=== PATIENT | male | born 1960 | race Hispanic/Latino ===

== ENCOUNTER → 2019-05-30 | Day surgery (SDC) | payer OTHER ==
[2019-05-25 17:27] LABS: BASOPHILS # (AUTO) 0.1 (0.0-0.1); BASOPHILS % 0.8 % (0.0-1.0); EOSINOPHILS # (AUTO) 0.3 (0.0-0.4); EOSINOPHILS % 3.2 % (0.0-6.0); HEMATOCRIT 43.5 % (38.2-49.6); LYMPHOCYTES # (AUTO) 4.1 (1.0-3.2); MEAN CORPUSCULAR HEMOGLOBIN 30.5 pg (28-32); MEAN CORPUSCULAR HGB CONC 34.5 g/dL (31-35); MEAN CORPUSCULAR VOLUME 88.4 fL (81-99); MONOCYTES # (AUTO) 0.7 (0.2-0.8); MONOCYTES % 7.7 % (4.4-11.3); NEUTROPHILS # (AUTO) 3.8 (2.1-6.9); NEUTROPHILS % 42.1 % (38.7-80.0); PLATELET COUNT 205 x10e3/uL (140-360); RED BLOOD COUNT 4.92 x10e6/uL (4.3-5.7); RED CELL DISTRIBUTION WIDTH 12.8 % (11.7-14.4)
[~2019-05-30] MED LIST: ASPIR 8181 MG PO; ATORVASTATIN CA20 MG PO; CARVEDILOL12.5 MG PO; EDARBYCLOR 40-1 EAC1 PO; FENOFIBRATE145 MG PO; FENTANYL CITRATE/PF 100MCG/2 ML INJ ONE; HYOSCYAMINE 0.125 MG TAB ONE; MIDAZOLAM HCL 2 MG/2 ML VIAL ONE; OMEPRAZOLE40 MG PO; PROPOFOL IV EMULSION 10 MG/ML 50 ML VIAL ONE; SPIRONOLACTONE25 MG PO
--- OUTSIDE RECORDS SUMMARY | 2019-05-30 11:15 | XMS REPORT | Summary of Care ---
Author Author [facility] Organization [facility] Address Unknown Phone Unavailable Encounter HQ Gaye_tirso(FIN) [id number] Date(s): 04/28/18 - 04/28/18 [facility] [address] [place] [address]- Discharge Disposition: Home or Self Care Attending Physician: Ayo Almazan MD Admitting Physician: Ayo Almazan MD Vital Signs No data available for this section Problem List Condition Effective Dates Status Health Status Informant COPD (chronic Active obstructive pulmonary disease)(Confirmed) Chronic left Active ventricular systolic heart failure(Confirmed) Claudication(Confirm Active ed) CAD (coronary artery Active disease)(Confirmed) BANG (dyspnea on Active exertion)(Confirmed) AV block, 1st Active degree(Confirmed) Hypercholesteremia(C Active onfirmed) HTN Active (hypertension)(Confi rmed) CONRADO (obstructive Active sleep apnea)(Confirmed) PVD (peripheral Active vascular disease)(Confirmed)1 Smoker(Confirmed) Active 1mild Allergies, Adverse Reactions, Alerts Substance Reaction Severity Status NKDA Active Medications No data available for this section Results No data available for this section Immunizations No data available for this section Procedures Procedure Date Related Diagnosis Body Site Status Cardiac catheterisation, left heart 11/24/17 Completed Appendectomy Completed Arthroscopy of knee1 Completed 1bilateral Social History Social History Type Response Alcohol Past Smoking Status Current every day smoker; Type: Cigarettes; Lives with someone who smokes; Cigarette Smoking Last 365 Days Yes; Reg Smoking Cessation Counseling No; Number of years: 50; Total pack years: 2; entered on: 11/17/17 Assessment and Plan No data available for this section
--- OUTSIDE RECORDS SUMMARY | 2019-05-30 11:15 | XMS REPORT | Summary of Care ---
Author Author [facility] Organization [facility] Address Unknown Phone Unavailable Encounter HQ Veronica(FIN) [id number] Date(s): 06/09/18 - 06/09/18 [facility] [address] [place] [address]- Encounter Diagnosis Chronic obstructive pulmonary disease, unspecified (Final) - 06/15/18 Discharge Disposition: Home or Self Care Attending Physician: Ayo Almazan MD Referring Physician: Ayo Almazan MD Vital Signs Most recent to 1 oldest [Reference Range]: Height 167.64 cm (06/09/18 9:01 AM) Weight 86.364 kg (06/09/18 9:01 AM) Body Mass Index 30.73 m2 (06/09/18 9:01 AM) Problem List Condition Effective Dates Status Health [...]
--- OUTSIDE RECORDS SUMMARY | 2019-05-30 11:15 | XMS REPORT | Continuity of Care Document ---
Author Author [facility] Address Unknown Phone Unavailable Care Team Providers Care Hand Salter Name Role Phone Pinchd Unavailable Unavailable Problems Problem Status Onset Date Classification Date Reported Comments Source Chronic obstructive pulmonary disease, unspecified 06/16/2018 12/27/2018 [facility] BREATHING Active 05/25/2018 [facility] J44.9 Active 05/25/2018 [facility] COPD Active 04/28/2018 [facility] Atherosclerotic heart disease of [place] coronary artery without angina pectoris 12/01/2017 03/02/2018 [facility] G47.33 Active 11/11/2017 [facility] ABNORMAL RESULT OF OTHER CARDIOVASCULAR Active 11/10/2017 [facility] R06.02 SHORTNESS OF BREATH Active 09/09/2017 [facility] Obstructive sleep apnea (pediatric) 03/02/2018 [facility] Essential hypertension 03/02/2018 [facility] Nicotine dependence, unspecified, uncomplicated 02/17/2018 [facility] Other forms of dyspnea 02/17/2018 [facility] COPD (Confirmed) Active Problem 12/27/2018 [facility] Chronic left ventricular systolic heart failure Active Problem 12/27/2018 [facility] Claudication Active Problem 12/27/2018 [facility] CAD (Confirmed) Active Problem 12/27/2018 [facility] BANG (Confirmed) Active Problem 12/27/2018 [facility] AV block, 1st degree Active Problem 12/27/2018 [facility] Hypercholesteremia Active Problem 12/27/2018 [facility] HTN (Confirmed) Active Problem 12/27/2018 [facility] CONRADO (Confirmed) Active Problem 12/27/2018 [facility] PVD (Confirmed)1 Active Problem 12/27/2018 mild [facility] Smoker Active Problem 12/27/2018 [facility] Cardiomyopathy, unspecified 03/02/2018 [facility] Nonrheumatic mitral insufficiency 03/02/2018 [facility] Stricture of artery 03/02/2018 [facility] Pure hypercholesterolemia, unspecified 03/02/2018 [facility] Nicotine dependence, cigarettes, uncomplicated 03/02/2018 [facility] Obesity, unspecified 03/02/[address] [facility] Body mass index 33.0-33.9, adult 03/02/[address] [facility] residential use of antithrombotics/antiplatelets 03/02/[address] [facility] residential use of aspirin 03/02/[address] [facility] Other watermelon harvesting supervisor drug therapy 03/02/[address] [facility] SHORTNESS OF BREATH Active [facility] ABNORMAL ELECTROCARDIOGRAM [ECG] [EKG] Active [facility] ESSENTIAL (PRIMARY) HYPERTENSION Active [facility] CHEST PAIN, UNSPECIFIED Active [facility] CHRONIC OBSTRUCTIVE PULMON DISEASE W ACU Active [facility] Medications Medication Details Route Status Patient Instructions Ordering Provider Order Date Source Acetaminophen 325 MG / Hydrocodone Bitartrate 5 MG Oral Tablet 2 tab, Route: PO, Drug Form: TAB, Dosing Weight 87.091, kg, Q4H, PRN Pain Score 7-10, Start date: 11/24/17 11:41:00 SHIRRER, Duration: 30 day, Stop date: 12/24/17 11:40:00 CSTNotes: (Same as: Darby 325/5) Do not exceed 4gm/day of acetaminophen. Inactive 11/24/2017 [facility] Nitroglycerin 0.4 mg, 1 tab, Route: SL, Drug form: TAB, Q5Min, Dosing Weight 87.091, kg, PRN Chest Pain, Start date: 11/24/17 11:41:00 SHIRRER, Duration: 30 day, Stop date: 12/24/17 11:40:00 CSTNotes: (Same as:Nitroqu ick, Nitrostat) "Do Not Crush" Sublingual tablet Inactive 11/24/[address] [facility] Ondansetron 4 mg, 1 tab, Route: PO, Drug form: TAB, Q8H, Dosing Weight 87.091, kg, PRN Nausea & Vomiting, Start date: 11/24/17 11:41:00 SHIRRER, Duration: 30 day, Stop date: 12/24/17 11:40:00 CSTNotes: (Same as: Zofran) Inactive 11/24/[address] [facility] Acetaminophen 650 mg, 2 tab, Route: PO, Drug form: TAB, Q4H, Dosing Weight 87.091, kg, PRN Pain Score 1-3, Start date: 11/24/17 11:41:00 SHIRRER, Duration: 30 day, Stop date: 12/24/17 11:40:00 CSTNotes: Do not exceed 4 gm/day. (Same as: Tylenol) Inactive 11/24/2017 [facility] Morphine 2 mg, 1 mL, Route: IVP, Drug form: INJ, Q2H, Dosing Weight 87.091, kg, PRN Pain Score 4-6, Start date: 11/24/17 11:41:00 SHIRRER, Duration: 30 day, Stop date: 12/24/17 11:40:00 CSTNotes: (Same as:MORPhine Sulfate) Inactive 11/24/2017 [facility] carvedilol 6.25 mg, PO, BID, 0 Refill(s) Active 11/17/2017 [facility] Spironolactone 25 mg=2 tab, PO, Daily, # 60 tab, 0 Refill(s) Active 11/17/[address] [facility] Hydrochlorothiazide 12.5 mg, PO, Daily, 0 Refill(s) Active 11/17/2017 [facility] Amlodipine 10 mg, PO, Daily, 0 Refill(s) Active 11/17/2017 [facility] Aspirin 81 mg, PO, Daily, 0 Refill(s) Active 11/17/2017 [facility] Losartan 25 mg, PO, Daily, 0 Refill(s) Active 11/17/2017 [facility] clopidogrel 75 mg, PO, Daily, 0 Refill(s) Active 11/17/[address] [facility] Omeprazole 40 mg, PO, BID, 0 Refill(s) Active 11/17/2017 [facility] atorvastatin 20 mg, PO, Daily, 0 Refill(s) Active 11/17/[address] [facility] Allergies, Adverse Reactions, Alerts No Known Medication Allergies Immunizations No Data Provided for This Section Results Order Name Results Value Reference Range Date Interpretation Comments Source ELECTROLYTES AGAP 12.9 10.0 - 20.0 11/17/[address] [facility] ELECTROLYTES eGFR 94 11/17/2017 Result Comment: The eGFR is calculated using the CKD-EPI formula. In most young, healthy individuals the eGFR will be >90 mL/min/1.73m2. The eGFR declines with age. An eGFR of 60-89 may be normal in some populations, particularly the elderly, for whom the CKD-EPI formula has not been extensively validated. Use of the eGFR is not recommended in the following populations:

Individuals with unstable creatinine concentrations, including patients and those with serious co-morbid conditions.

Patients with extremes in muscle mass or diet.

The data above are obtained from the National Kidney Disease Education Program (NKDEP) which additionally recommends that when the eGFR is used in patients with extremes of body mass index for purposes of drug dosing, the eGFR should be multiplied by the estimated BMI. [facility] ELECTROLYTES Calcium Lvl 8.6 8.5 - 10.5 11/17/2017 [facility] ELECTROLYTES CO2 26 24 - 32 11/17/2017 [facility] ELECTROLYTES Chloride Lvl 103 95 - 109 11/17/2017 [facility] ELECTROLYTES Sodium Lvl 138 135 - 145 11/17/2017 [facility] ELECTROLYTES Creatinine Lvl 0.90 0.50 - 1.40 11/17/2017 [facility] ELECTROLYTES Potassium Lvl 3.9 3.5 - 5.1 11/17/2017 [facility] ELECTROLYTES Glucose Lvl 111 70 - 99 11/17/2017 [facility] ELECTROLYTES BUN 14 7 - 22 11/17/2017 [facility] HEMATOLOGY MPV 8.7 7.4 - 10.4 11/17/2017 [facility] HEMATOLOGY RDW 13.9 11.5 - 14.5 11/17/2017 [facility] HEMATOLOGY Platelet 233 133 - 450 11/17/2017 [facility] HEMATOLOGY MCHC 34.3 32.0 - 36.0 11/17/2017 [facility] HEMATOLOGY RBC 5.32 4.70 - 6.10 11/17/2017 [facility] HEMATOLOGY WBC 8.1 3.7 - 10.4 11/17/2017 [facility] HEMATOLOGY MCH 29.9 27.0 - 31.0 11/17/2017 [facility] HEMATOLOGY MCV 87.0 80.0 - 94.0 11/17/2017 [facility] HEMATOLOGY Hct 46.3 42.0 - 54.0 11/17/2017 [facility] HEMATOLOGY Hgb 15.9 14.0 - 18.0 11/17/2017 [facility] HEMATOLOGY Segs 51.8 45.0 - 75.0 11/17/2017 [facility] HEMATOLOGY Lymphocytes 34.5 20.0 - 40.0 11/17/2017 [facility] HEMATOLOGY Basophils # 0.1 0.0 - 0.2 11/17/2017 [facility] HEMATOLOGY Eosinophils # 0.3 0.0 - 0.5 11/17/2017 [facility] HEMATOLOGY Lymphocytes # 2.8 1.0 - 5.5 11/17/2017 [facility] HEMATOLOGY Monocytes # 0.7 0.0 - 0.8 11/17/2017 [facility] HEMATOLOGY Segs-Bands # 4.2 1.5 - 8.1 11/17/2017 [facility] HEMATOLOGY Eosinophils 3.7 0.0 - 4.0 11/17/2017 [facility] HEMATOLOGY Basophils 0.9 0.0 - 1.0 11/17/2017 [facility] HEMATOLOGY Monocytes 9.1 2.0 - 12.0 11/17/2017 [facility] HEMATOLOGY INR 0.29 0.85 - 1.17 11/17/2017 [facility] HEMATOLOGY PT 5.0 12.0 - 14.7 11/17/2017 Result Comment: SPECIMEN NOT [id number]/17/2017 10:09 [facility] HEMATOLOGY PTT 26.9 22.9 - 35.8 11/17/2017 [facility] Pathology Reports No Data Provided for This Section Diagnostic Reports Report Value Date Source Chest 2 views DX Clinical Indication: - J44.0 Chronic obstructive pulmonary disease with acute lower respiratory infection Comparison: November 17, 2017 FINDINGS: The PA and lateral chest radiographs shows normal lung volumes without interstitial or airspace opacities, pleural effusions or pneumothorax. There is left chest wall intracardiac device which is been placed since previous exam. The heart size and pulmonary vasculature are normal. The trachea is midline. There are no clinically significant osseous abnormalities noted. IMPRESSION: No chest radiographic evidence of acute cardiopulmonary disease. SL: [id number] 04/28/2018 [facility] Chest 2 views DX Chest 2 views DX CLINICAL HISTORY: R94.31 Abnormal electrocardiogram [ECG] [EKG] - R94.31 Abnormal electrocardiogram [ECG] [EKG] COMPARISON: none FINDINGS: SUPPORT DEVICES: none LUNGS: Lungs are reasonably well inflated. No consolidation or any significant effusion. No pneumothorax is evident. CARDIOVASCULAR: Cardiac silhouette size is normal. Pulmonary vasculature is within normal limits. MEDIASTINUM/MYLES: Trachea is midline. No contour abnormality is noted. OSSEOUS STRUCTURES: No acute bony abnormality is noted. SOFT TISSUES: No significant soft tissue abnormality is noted. IMPRESSION: No acute abnormality is noted. SL: [id number] 11/17/2017 [facility] Consultation Notes No Data Provided for This Section Discharge Summaries No Data Provided for This Section History and Physicals No Data Provided for This Section Vital Signs Vital Sign Value Date Comments Source Height 167.64 cm 2018 [facility] BMI Calculated 30.[address] [facility] Weight 86.[address] [facility] Respitory Rate 18 11/17/[address] [facility] Heart Rate 70 11/17/2017 [facility] Systolic (mm Hg) 146 11/17/[address] [facility] Diastolic (mm Hg) 97 11/17/2017 [facility] BMI Calculated 30.99 11/17/[address] [facility] Height 167.64 cm 11/17/2017 [facility] Weight 87.091 11/17/[address] [facility] BMI Calculated 30.02 09/16/[address] [facility] Weight 81.818 09/16/[address] [facility] Height 165.1 cm 09/16/2017 [facility] Encounters Location Location Details Encounter Type Encounter Number Reason For Visit Attending Provider ADM Date DC Date Status Source [facility] Outpatient [id number] Vasude Emelina 09/16/2017 09/17/2017 [facility] [id number] Vasudev Emelina 09/21/2017 09/22/2017 [facility] [id number] Vasudev Emelina 11/11/2017 11/12/2017 [id number] [facility] 04/29/2018 [facility] [id number] [facility] 06/10/2018 [facility] Procedures Procedure Code Date Perfomer Comments Source Cardiac catheterisation, left heart [id number] 11/24/2017 [facility] Appendectomy [id number] [facility] Arthroscopy of knee<sup>1</sup> [id number] bilateral [facility] Assessment and Plan No Data Provided for This Section Plan of Care No Data Provided for This Section Social History Social History Date Source Social History TypeResponse Alcohol Past Smoking Status Current every day smoker; Type: Cigarettes; Lives with someone who smokes; Cigarette Smoking Last 365 Days Yes; Reg Smoking Cessation Counseling No; Number of years: 50; Total pack years: 2; entered on: 11/17/17 11/17/2017 [facility] Family History No Data Provided for This Section Advance Directives No Data Provided for This Section Functional Status No Data Provided for This Section
--- OUTSIDE RECORDS SUMMARY | 2019-05-30 11:15 | XMS REPORT | Clinical Summary ---
Author Author [facility] Address Unknown Phone Unavailable Care Team Providers Care Roller Printing Supervisor Name Role Phone Sharpless PCP Allergies No Known Allergies Medications End Date Status Medication Sig Dispensed Refills Start Date Active clopidogrel (PLAVIX) 75 Take 75 mg by 0 mg tablet mouth daily. Active spironolactone Take 25 mg by 0 (ALDACTONE) 25 MG tablet mouth daily. Active aspirin 81 MG EC tablet Take 81 mg by 0 mouth daily. Active atorvastatin (LIPITOR) 40 Take 40 mg by 0 MG tablet mouth daily. Active hydroCHLOROthiazide Take 12.5 mg 0 (HYDRODIURIL) 12.5 MG by mouth tablet daily. Active amLODIPine (NORVASC) 10 Take 10 mg by 0 MG tablet mouth daily. Active losartan (COZAAR) 25 MG Take 25 mg by 0 tablet mouth daily. Active Problems Problem Noted Date Dilated cardiomyopathy 02/22/2018 Social History Date Tobacco Use Types Packs/Day Years Used Current Every Day Smoker Smokeless Tobacco: Never Used Alcohol Use Drinks/Week oz/Week Comments No Sex Assigned at Date Recorded Not on file Industry Job Start Date Occupation Not on file Not on file Not on file Travel End Travel History Travel Start No recent travel history available. Last Filed Vital Signs Not on file Plan of Treatment Not on file Implants Device Identifier Shelf Expiration Date Model / Serial / Lot Implanted Type Area Manufactur er 12/12/2018 4674 86 / [id number] / Lead Acuity Stgt 95cm 4672 - Cardiovasc N/A: Heart [place] [id number] ular SCI:CARDIA Implanted: Qty: 1 on 02/22/2018 by Dinesh Bran MD [place] 12/23/2019 0292 / [id number] / [id number] Lead Brielle Reno Af Df4 59cm 0292 Defibrilla N/A: Coronary GUIDANT:CA - [id number] tors RDIAC Implanted: Qty: 1 on 02/22/2018 by Dinesh Rosales MD MGMT 11/10/2019 G158 / [id number] / [id number] Dynagen Defibrilla [place] Implanted: Qty: 1 on 02/22/2018 by Dinesh Kay MD 12/12/2018 4674 / / [id number] Acuity X4 Spiral S ICD N/A: Coronary PORTIA Implanted: Qty: 1 on 02/22/2018 by Dinesh Park MD 02/09/2020 7740 / [id number] / [id number] Ld Pacing Ingevity Active 45 7740 Pacemaker N/A: Coronary [place] - [id number] Lead SCI:CARDIA Implanted: Qty: 1 on 02/22/2018 by Dinesh Bran MD [facility] Procedures Comments Procedure Name Priority Date/Time Associated Diagnosis ARRYTHMIA IMPLANT REPORT 08/18/2018 - SCAN 6:00 AM CDT after 05/29/2018 Results * ARRYTHMIA IMPLANT REPORT - SCAN (08/18/2018 6:00 AM CDT) Narrative Performed At after 05/29/2018 Insurance Payer Benefit Subscriber ID Type Phone Address Plan / Group [employer] xxxxxxxxxx [employer]CH[employer] Advance Directives For more information, please contact: [facility] [address] [place] [address] Date Inactivated Comments Code Status Date Activated 02/23/2018 3:48 PM Full Code 02/22/2018 7:23 AM This code status was determined by: Patient
--- OUTSIDE RECORDS SUMMARY | 2019-05-30 11:15 | XMS REPORT | Summary of Care ---
Author Author [facility] Organization [facility] Address Unknown Phone Unavailable Encounter HQ Encntr_alias(FIN) [id number] Date(s): 09/21/17 - 09/21/17 [facility] [address] [place] [address]- Discharge Disposition: Home or Self Care Attending Physician: Ronan Tarnago MD Referring Physician: Ronan Tarango MD Vital Signs No data available for this section Problem List No data available for this section Allergies, Adverse Reactions, Alerts Substance Reaction Severity Status NKDA Active Medications No data available for this section Results No data available for this section Immunizations No data available for this section Procedures No data available for this section Social History No data available for this section Assessment and Plan No data available for this section
--- OUTSIDE RECORDS SUMMARY | 2019-05-30 11:15 | XMS REPORT | Summary of Care ---
Author Author [facility] Organization [facility] Address Unknown Phone Unavailable Encounter HQ Pattientr_tirso(FIN) [id number] Date(s): 09/16/17 - 09/16/17 [facility] [address] [place] [address]- [phone] Discharge Disposition: Home or Self Care Attending Physician: Ronan Tarango MD Referring Physician: Ronan Tarango MD Vital Signs Most recent to 1 oldest [Reference Range]: Height 165.1 cm (09/16/17 10:41 AM) Weight 81.818 kg (09/16/17 10:41 AM) Body Mass Index 30.02 m2 (09/16/17 10:41 AM) Problem List No data available for this [...]
--- OUTSIDE RECORDS SUMMARY | 2019-05-30 11:15 | XMS REPORT | Summary of Care ---
Author Author [facility] Organization [facility] Address Unknown Phone Unavailable Encounter REBECCA Martin(GODWIN) [id number] Date(s): 11/24/17 - 11/24/17 [facility] [address] [place] [address]- Encounter Diagnosis Atherosclerotic heart disease of [place] coronary artery without angina pectoris (Final) - 11/30/17 Cardiomyopathy, unspecified (Final) - Nonrheumatic mitral (valve) insufficiency (Final) - Stricture of artery (Final) - Essential (primary) hypertension (Final) - Pure hypercholesterolemia, unspecified (Final) - Nicotine dependence, cigarettes, uncomplicated (Final) - Obesity, unspecified (Final) - Body mass index (BMI) 33.0-33.9, adult (Final) - Obstructive sleep apnea (adult) (pediatric) (Final) - snf (current) use of antithrombotics/antiplatelets (Final) - manager terminal (current) use of aspirin (Final) - Other exterminator termite (current) drug therapy (Final) - Discharge Disposition: Home or Self Care Attending Physician: Ronan Tarango MD Admitting Physician: Ronan Tarango MD Referring Physician: Ronan Tarango MD Vital Signs Most recent to 1 oldest [Reference Range]: Height 167.64 cm (11/17/17 9:10 AM) Blood Pressure 146/97 mmHg [90-140/60-90 mmHg] *HI* (11/17/17 10:34 AM) Respiratory Rate 18 BRMIN [14-20 BRMIN] (11/17/17 10:34 AM) Peripheral Pulse 70 bpm Rate [60-100 bpm] (11/17/17 10:34 AM) Weight 87.091 kg (11/17/17 9:10 AM) Body Mass Index 30.99 m2 (11/17/17 9:10 AM) Problem List Condition Effective Dates Status [...] Substance Reaction Severity Status NKDA Active Medications acetaminophen 650 mg, 2 tab, Route: PO, Drug form: TAB, Q4H, Dosing Weight 87.091, kg, PRN Hannah n Score 1-3, Start date: 11/24/17 11:41:00 SHEET COMBINING OPERATOR, Duration: 30 day, Stop date: 11:40:00 SHEET COMBINING OPERATOR Notes: Do not exceed 4 gm/day. (Same as: Tylenol) Start Date: 11/24/17 Stop Date: 11/24/17 Status: Discontinued acetaminophen-hydrocodone 325 mg-5 mg oral tablet 2 tab, Route: PO, Drug Form: TAB, Dosing Weight 87.091, kg, Q4H, PRN Pain Score 7-10, Start date: 11/24/17 11:41:00 SHEET COMBINING OPERATOR, Duration: 30 day, Stop date: 12/24/17 1 1:40:00 SHEET COMBINING OPERATOR Notes: (Same as: [place] 325/5) Do not exceed 4gm/day of acetaminophen. Start Date: 11/24/17 Stop Date: 11/24/17 Status: Discontinued acetaminophen-hydrocodone 325 mg-5 mg oral tablet 1 tab, Route: PO, Drug Form: TAB, Dosing Weight 87.091, kg, Q4H, PRN Pain Score 4-6, Start date: 11/24/17 11:41:00 SHEET COMBINING OPERATOR, Duration: 30 day, Stop date: 12/24/17 11 :40:00 SHEET COMBINING OPERATOR Notes: (Same as: [place] 325/5) Do not exceed 4gm/day of acetaminophen. Start Date: 11/24/17 Stop Date: 11/24/17 Status: Discontinued amLODIPine 10 mg, PO, Daily, 0 Refill(s) Start Date: 11/17/17 Status: Ordered aspirin 81 mg, PO, Daily, 0 Refill(s) Start Date: 11/17/17 Status: Ordered atorvastatin 20 mg, PO, Daily, 0 Refill(s) Start Date: 11/17/17 Status: Ordered carvedilol 6.25 mg, PO, BID, 0 Refill(s) Start Date: 11/17/17 Status: Ordered clopidogrel 75 mg, PO, Daily, 0 Refill(s) Start Date: 11/17/17 Status: Ordered hydrochlorothiazide 12.5 mg, PO, Daily, 0 Refill(s) Start Date: 11/17/17 Status: Ordered losartan 25 mg, PO, Daily, 0 Refill(s) Start Date: 11/17/17 Status: Ordered morphine Sulfate 2 mg, 1 mL, Route: IVP, Drug form: INJ, Q2H, Dosing Weight 87.091, kg, PRN Pain Score 4-6, Start date: 11/24/17 11:41:00 SHEET COMBINING OPERATOR, Duration: 30 day, Stop date: 12/24 11:40:00 SHEET COMBINING OPERATOR Notes: (Same as:MORPhine Sulfate) Start Date: 11/24/17 Stop Date: 11/24/17 Status: Discontinued nitroglycerin SL Tab 0.4 mg, 1 tab, Route: SL, Drug form: TAB, Q5Min, Dosing Weight 87.091, kg, PRN C hest Pain, Start date: 11/24/17 11:41:00 SHEET COMBINING OPERATOR, Duration: 30 day, Stop date: 12/24 11:40:00 SHEET COMBINING OPERATOR Notes: (Same as:Nitroquick, Nitrostat)"Do Not Crush" Sublingual tablet Start Date: 11/24/17 Stop Date: 11/24/17 Status: Discontinued omeprazole 40 mg, PO, BID, 0 Refill(s) Start Date: 11/17/17 Status: Ordered ondansetron 4 mg, 1 tab, Route: PO, Drug form: TAB, Q8H, Dosing Weight 87.091, kg, PRN Nause a & Vomiting, Start date: 11/24/17 11:41:00 SHEET COMBINING OPERATOR, Duration: 30 day, Stop date: 12/24/17 11:40:00 SHEET COMBINING OPERATOR Notes: (Same as: Zofran) Start Date: 11/24/17 Stop Date: 11/24/17 Status: Discontinued spironolactone 25 mg=2 tab, PO, Daily, # 60 tab, 0 Refill(s) Start Date: 11/17/17 Status: Ordered Results ELECTROLYTES Most recent to 1 oldest [Reference Range]: Sodium Lvl [135-145 138 mEq/L mEq/L] (11/17/17 9:24 AM) Potassium Lvl 3.9 mEq/L [3.5-5.1 mEq/L] (11/17/17 9:24 AM) Chloride Lvl [95-109 103 mEq/L mEq/L] (11/17/17 9:24 AM) CO2 [24-32 mEq/L] 26 mEq/L (11/17/17 9:24 AM) AGAP [10.0-20.0 12.9 mEq/L mEq/L] (11/17/17 9:24 AM) CHEM PANEL Most recent to 1 oldest [Reference Range]: Creatinine Lvl 0.90 mg/dL [0.50-1.40 mg/dL] (11/17/17 9:24 AM) eGFR 94 mL/min/1.73m2 1 *NA* (11/17/17 9:24 AM) BUN [7-22 mg/dL] 14 mg/dL (11/17/17 9:24 AM) Glucose Lvl [70-99 111 mg/dL mg/dL] *HI* (11/17/17 9:24 AM) Calcium Lvl 8.6 mg/dL [8.5-10.5 mg/dL] (11/17/17 9:24 AM) 1Result Comment: The eGFR is calculated using the [...] from the National Kidney Disease Education Program ( NKDEP) which additionally recommends that when the eGFR is used in patients with extremes of body mass index for purposes of drug dosing, the eGFR should be mul tiplied by the estimated BMI. HEMATOLOGY Most recent to 1 oldest [Reference Range]: WBC [3.7-10.4 K/CMM] 8.1 K/CMM (11/17/17 9:24 AM) RBC [4.70-6.10 5.32 M/CMM M/CMM] (11/17/17 9:24 AM) Hgb [14.0-18.0 g/dL] 15.9 g/dL (11/17/17 9:24 AM) Hct [42.0-54.0 %] 46.3 % (11/17/17 9:24 AM) MCV [80.0-94.0 fL] 87.0 fL (11/17/17 9:24 AM) MCH [27.0-31.0 pg] 29.9 pg (11/17/17 9:24 AM) MCHC [32.0-36.0 34.3 g/dL g/dL] (11/17/17 9:24 AM) RDW [11.5-14.5 %] 13.9 % (11/17/17 9:24 AM) MPV [7.4-10.4 fL] 8.7 fL (11/17/17 9:24 AM) Platelet [133-450 233 K/CMM K/CMM] (11/17/17 9:24 AM) Segs [45.0-75.0 %] 51.8 % (11/17/17 9:24 AM) Lymphocytes 34.5 % [20.0-40.0 %] (11/17/17 9:24 AM) Monocytes [2.0-12.0 9.1 % %] (11/17/17 9:24 AM) Eosinophils [0.0-4.0 3.7 % %] (11/17/17 9:24 AM) Basophils [0.0-1.0 0.9 % %] (11/17/17 9:24 AM) Segs-Bands # 4.2 K/CMM [1.5-8.1 K/CMM] (11/17/17 9:24 AM) Lymphocytes # 2.8 K/CMM [1.0-5.5 K/CMM] (11/17/17 9:24 AM) Monocytes # [0.0-0.8 0.7 K/CMM K/CMM] (11/17/17 9:24 AM) Eosinophils # 0.3 K/CMM [0.0-0.5 K/CMM] (11/17/17 9:24 AM) Basophils # [0.0-0.2 0.1 K/CMM K/CMM] (11/17/17 9:24 AM) PT [12.0-14.7 5.0 seconds 1 seconds] *LOW* (11/17/17 9:24 AM) INR [0.85-1.17] 0.29 *LOW* (11/17/17 9:24 AM) PTT [22.9-35.8 26.9 seconds seconds] (11/17/17 9:24 AM) 1Result Comment: SPECIMEN NOT [id number]/17/2017 10:09 Immunizations No data available for this section [...]
--- OUTSIDE RECORDS SUMMARY | 2019-05-30 11:15 | XMS REPORT | Summary of Care ---
Author Author [facility] Organization [facility] Address Unknown Phone Unavailable Encounter REBECCA Martin(GODWIN) [id number] Date(s): 11/11/17 - 11/11/17 [facility] [address] [place] [address]- [phone] Encounter Diagnosis Obstructive sleep apnea (adult) (pediatric) (Final) - 11/23/17 Chronic obstructive pulmonary disease, unspecified (Final) - Essential (primary) hypertension (Final) - Nicotine dependence, unspecified, uncomplicated (Final) - Other forms of dyspnea (Final) - Discharge Disposition: Home or Self [...]
--- OUTSIDE RECORDS SUMMARY | 2019-05-30 11:16 | XMS REPORT ---
Author Author [facility] Address Unknown Phone Unavailable Care Team Providers Care Product Development Worker Name Role Phone SENA BALDWIN Unavailable Unavailable Problems This patient has no known problems. Allergies, Adverse Reactions, Alerts This patient has no known allergies or adverse reactions. Medications This patient has no known medications. Results Test Description Test Time Test Comments Text Results Atomic Results Result Comments RAD, CHEST, 1 VIEW, NON DEPT 2018-02-23 11:08:00 Reason for exam:->BiV AICDShould this be performed at the bedside?->Yes FINAL REPORT Chest one view INDICATION: Biventricular ICD COMPARISON: 02/22/2018 IMPRESSION: A left chest ICD is in place with stable leads. No pneumothorax is seen. The cardiac si lhouette is enlarged. Aortic ectasia/tortuosity is again seen. There is pulmonary vascular congestion with slightly decreased edema. Basilar opacities suggest atelectasis. No significant pleural effusion is seen. The bones appear unchanged. Signed: Becky Robins Verified Date/Time: 02/23/2018 11:08:24 Reading Location: [facility] Radiology Reading Room TROLYTES 2018-02-23 05:53:00 SODIUM (BEAKER) (test uyvh=887) 138 meq/L 136-145 POTASSIUM (BEAKER) (test lonk=218) 4.2 meq/L 3.5-5.1 CHLORIDE (BEAKER) (test ritn=867) 102 meq/L 98-107 CO2 (BEAKER) (test bmxr=627) 27 meq/L 22-29 BUN AND [id number] 05:53:00* Test Item Value Reference Range Comments BLOOD UREA NITROGEN (BEAKER) (test znyx=771) 14 mg/dL 7-21 CREATININE (BEAKER) (test eyyz=435) 0.97 mg/dL 0.57-1.25 EGFR (BEAKER) (test plpa=3184) 80 mL/min/1.73 sq m ESTIMATED GFR IS NOT ACCURATE CREATININE CLEARANCE IN PREDICTING GLOMERULAR FILTRATION RATE. ESTIMATED GFR IS NOT APPLICABLE FOR DIALYSIS PATIENTS. CBC (HEMOGRAM ONLY)2018-02-23 05:12:00* Test Item Value Reference Range Comments WHITE BLOOD CELL COUNT (BEAKER) (test mzyr=914) 9.4 K/ L 3.5-10.5 RED BLOOD CELL COUNT (BEAKER) (test jumm=635) 4.88 M/ L 4.63-6.08 HEMOGLOBIN (BEAKER) (test teuh=855) 14.7 GM/DL 13.7-17.5 HEMATOCRIT (BEAKER) (test gbno=695) 44.4 % 40.1-51.0 MEAN CORPUSCULAR VOLUME (BEAKER) (test wbpm=632) 91.0 fL 79.0-92.2 MEAN CORPUSCULAR HEMOGLOBIN (BEAKER) (test yyev=807) 30.1 pg 25.7-32.2 MEAN CORPUSCULAR HEMOGLOBIN CONC (BEAKER) (test xrpu=805) 33.1 GM/DL 32.3-36.5 RED CELL DISTRIBUTION WIDTH (BEAKER) (test yvsb=742) 13.7 % 11.6-14.4 PLATELET COUNT (BEAKER) (test qzeu=428) 250 K/CU MM 150-450 MEAN PLATELET VOLUME (BEAKER) (test lelg=217) 10.4 fL 9.4-12.4 NUCLEATED RED BLOOD CELLS (BEAKER) (test tomk=520) 0 /100 WBC 0-0 RAD, CHEST, 1 VIEW, NON [id number] 13:17:00Reason for exam:->BiV AICDShould this be performed at the bedside?->YesFINAL REPORT AP chest HISTORY: AICD COMPARISON: None IMPRESSION:Left subclavian AICD placed with three intact leads. Mild cardiomegaly. Mild pulmonary vascular congestion. No focal consolidation, pleural effusion or pneumothorax. Signed: Fam Valle MDReport Verified Date/Time: 02/22/2018 13:17:47 Reading Location: [facility] Reading Room [id number] 08:45:00* Test Item Value Reference Range Comments MAGNESIUM (BEAKER) (test rmiu=647) 2.1 mg/dL 1.6-2.6 COMPREHENSIVE METABOLIC [id number] 08:45:00* Test Item Value Reference Range Comments TOTAL PROTEIN (BEAKER) (test ygxs=624) 6.9 gm/dL 6.0-8.3 ALBUMIN (BEAKER) (test oahh=6033) 4.2 g/dL 3.5-5.0 ALKALINE PHOSPHATASE (BEAKER) (test ffxr=524) 99 U/L 40-150 BILIRUBIN TOTAL (BEAKER) (test ruct=866) 0.6 mg/dL 0.2-1.2 SODIUM (BEAKER) (test tiwc=886) 142 meq/L 136-145 POTASSIUM (BEAKER) (test sukl=959) 3.8 meq/L 3.5-5.1 CHLORIDE (BEAKER) (test zmfr=078) 105 meq/L 98-107 CO2 (BEAKER) (test vuzy=133) 27 meq/L 22-29 BLOOD UREA NITROGEN (BEAKER) (test olxi=870) 13 mg/dL 7-21 CREATININE (BEAKER) (test fswn=984) 0.84 mg/dL 0.57-1.25 GLUCOSE RANDOM (BEAKER) (test ztqa=692) 104 mg/dL 70-105 CALCIUM (BEAKER) (test vvrs=200) 9.2 mg/dL 8.4-10.2 AST (SGOT) (BEAKER) (test ymhc=397) 17 U/L 5-34 ALT (SGPT) (BEAKER) (test lfsh=372) 29 U/L 6-55 EGFR (BEAKER) (test lcdq=8855) 94 mL/min/1.73 sq m ESTIMATED GFR IS NOT ACCURATE CREATININE CLEARANCE IN PREDICTING GLOMERULAR FILTRATION RATE. ESTIMATED GFR IS NOT APPLICABLE FOR DIALYSIS PATIENTS. [id number] 08:30:00* Test Item Value Reference Range Comments PARTIAL THROMBOPLASTIN TIME (BEAKER) (test llyn=021) 26.2 seconds 22.5-36.0 PROTHROMBIN TIME/[id number] 08:29:00* Test Item Value Reference Range Comments PROTIME (BEAKER) (test elyr=953) 14.4 seconds 11.7-14.7 INR (BEAKER) (test ysmj=813) 1.1 <=5.9 RECOMMENDED COUMADIN/WARFARIN INR THERAPY RANGESSTANDARD DOSE: 2.0 - 3.0 Inclu ezequiel: PROPHYLAXIS for venous thrombosis, systemic embolization; TREATMENT for boni ous thrombosis and/or pulmonary embolus.HIGH RISK: Target INR is 2.5-3.5 for pat ients with mechanical heart valves.CBC W/PLT COUNT & AUTO [id number] 08:15:00* Test Item Value Reference Range Comments WHITE BLOOD CELL COUNT (BEAKER) (test ptha=524) 7.4 K/ L 3.5-10.5 RED BLOOD CELL COUNT (BEAKER) (test xlpj=447) 4.62 M/ L 4.63-6.08 HEMOGLOBIN (BEAKER) (test ingf=388) 13.7 GM/DL 13.7-17.5 HEMATOCRIT (BEAKER) (test txtp=703) 41.8 % 40.1-51.0 MEAN CORPUSCULAR VOLUME (BEAKER) (test mgym=660) 90.5 fL 79.0-92.2 MEAN CORPUSCULAR HEMOGLOBIN (BEAKER) (test sdbj=843) 29.7 pg 25.7-32.2 MEAN CORPUSCULAR HEMOGLOBIN CONC (BEAKER) (test dbzh=719) 32.8 GM/DL 32.3-36.5 RED CELL DISTRIBUTION WIDTH (BEAKER) (test vdlf=531) 13.4 % 11.6-14.4 PLATELET COUNT (BEAKER) (test obex=130) 274 K/CU MM 150-450 MEAN PLATELET VOLUME (BEAKER) (test vsze=269) 10.4 fL 9.4-12.4 NUCLEATED RED BLOOD CELLS (BEAKER) (test uaov=792) 0 /100 WBC 0-0 NEUTROPHILS RELATIVE PERCENT (BEAKER) (test poql=451) 49 % LYMPHOCYTES RELATIVE PERCENT (BEAKER) (test wzif=730) 38 % MONOCYTES RELATIVE PERCENT (BEAKER) (test jfuo=683) 9 % EOSINOPHILS RELATIVE PERCENT (BEAKER) (test wwnd=566) 3 % BASOPHILS RELATIVE PERCENT (BEAKER) (test mpho=375) 1 % NEUTROPHILS ABSOLUTE COUNT (BEAKER) (test wwud=622) 3.63 K/ L 1.78-5.38 LYMPHOCYTES ABSOLUTE COUNT (BEAKER) (test fvxp=665) 2.83 K/ L 1.32-3.57 MONOCYTES ABSOLUTE COUNT (BEAKER) (test zflk=685) 0.63 K/ L 0.30-0.82 EOSINOPHILS ABSOLUTE COUNT (BEAKER) (test blbt=736) 0.22 K/ L 0.04-0.54 BASOPHILS ABSOLUTE COUNT (BEAKER) (test lpfg=127) 0.04 K/ L 0.01-0.08 IMMATURE GRANULOCYTES-RELATIVE PERCENT (BEAKER) (test hwif=0195) 0 % 0-1
[2019-05-30 15:35] VITALS: BP 85/55
--- NOTE | 2019-05-30 16:13 | Operative Report ---
DATE OF PROCEDURE: 05/30/2019 SURGEON: Jules De La Cruz MD PROCEDURES: Esophagogastroduodenoscopy with biopsies and colonoscopy with polypectomy. INDICATIONS FOR EGD: Acid reflux, nausea, and vomiting. INDICATIONS FOR COLONOSCOPY: Colorectal cancer screening. MEDICATIONS: The patient was done under MAC, please see anesthesiologist's note. PROCEDURE IN DETAIL: With the patient in left lateral decubitus position, flexible fiberoptic Olympus gastroscope was introduced into the esophagus under direct visualization without any difficulty. There was some patchy intense erythema noted in distal esophagus. The scope was then advanced with ease into the stomach traversing a moderate-sized hiatal hernia. Mucosa overlying the antrum and the body revealed some patchy intense erythema and mild to moderate edema. Biopsies were obtained and sent to stain for H pylori. Pylorus was of normal contour and shape, it was intubated with ease and the scope was advanced all the way to the second portion of the duodenum. Biopsies were obtained from the second portion and the duodenal bulb to rule out sprue. There was a minute nodule noted in the duodenal bulb in the distal anterior wall and that was biopsied. The scope was then withdrawn back into the stomach and retroflexed and mucosa overlying the fundus appeared to be within normal limits. The previously described hiatal hernia was also noted in the retroflexed position. The scope was then straightened out, it was subsequently withdrawn. The patient tolerated the procedure well. IMPRESSION: 1. Distal esophagitis. 2. Moderate size hiatal hernia. 3. Gastritis, biopsied. Biopsies sent to stain for Helicobacter pylori. 4. Duodenal bulb nodule anterior wall, biopsied. 5. Rule out sprue. PLAN: Follow up histology. Increase omeprazole to 40 mg one p.o. a.c. b.i.d. PROCEDURE IN DETAIL: The patient was then turned around after adequate lubrication of the anal canal. Flexible fiberoptic Olympus colonoscope was inserted into the rectum with ease and advanced all the way to the cecum. It was then withdrawn slowly, mucosa overlying the cecum, ascending colon, transverse colon appeared to be within normal limits. One polyp was hot biopsied from the descending colon. Some diverticular disease was noted in the distal descending and the sigmoid colon. Eight polyps were hot biopsied from the sigmoid colon. The rectum grossly appeared to be within normal limits. The scope was then retroflexed into the distal rectum and moderate-sized internal hemorrhoids were noted, none of which was actively bleeding. The scope was then straightened out, it was subsequently withdrawn. The patient tolerated the procedure well. IMPRESSION: 1. Descending colon polyp, hot biopsied. 2. Diverticulosis. 3. Sigmoid colon polyps x8, hot biopsied. 4. Internal hemorrhoids, none actively bleeding. PLAN: Followup histology. Initiate high-fiber, low-fat diet. Initiate high-fiber supplement. The patient might benefit from a followup colonoscopy in 3 years. Jules De La Cruz MD [facility]/MODL /[id number] cc: Meche Santo MD
== END | disposition home or self-care (01) ==
LOC: OR 11:13
PROVIDERS: ATTEND Internal Medicine Gastroenterology
DX: Z12.11 Encounter for screening for malignant neoplasm of colon (principal); D12.5 Benign neoplasm of sigmoid colon; K29.70 Gastritis, unspecified, without bleeding; K21.0 Gastro-esophageal reflux disease with esophagitis; K44.9 Diaphragmatic hernia without obstruction or gangrene; K31.89 Other diseases of stomach and duodenum; K28.9 Gastrojejunal ulcer, unspecified as acute or chronic, without hemorrhage or perforation; K57.30 Diverticulosis of large intestine without perforation or abscess without bleeding; K64.8 Other hemorrhoids; I25.10 Atherosclerotic heart disease of native coronary artery without angina pectoris; E78.5 Hyperlipidemia, unspecified; I10 Essential (primary) hypertension; F17.210 Nicotine dependence, cigarettes, uncomplicated; Z01.810 Encounter for preprocedural cardiovascular examination; Z01.812 Encounter for preprocedural laboratory examination; Z79.82 Long term (current) use of aspirin; Z68.31 Body mass index [BMI] 31.0-31.9, adult; Z95.810 Presence of automatic (implantable) cardiac defibrillator
CPT/HCPCS: 36415; 43239; 45384; 85025; 93005; J2250; J2704; J3010; 45378